=== PATIENT | female | born 1935 | race Caucasian/White ===

== ENCOUNTER 2018-11-11 16:18 | Emergency (ER) | payer MEDICARE, OTHER ==
--- NOTE | 2018-11-11 17:44 | ERPHSYRPT ---
- History of Present Illness Time Seen by Provider: 11/11/18 17:15 Source: patient, family (Friend) Exam Limitations: clinical condition (Unable to obtain personal information; confusion) Patient Subjective Stated Complaint: patient's friend states earlier today that patient had called him and seemed confused on the phone. friend is a [employer] that helps patient. states he had not seen the patient for a month prior to todays phone call. does have children out of town but unsure when they spoke with her last. patient denies pain. Triage Nursing Assessment: ambulated to room per self with steady gate. skin w/ d, color normal, resp easy. patient's speech is garbled at times and is not able to answer questions with approriate words. unable to state what day it is or where she is. unable to state date. denies any pain. Allergies/Adverse Reactions: doxycycline Allergy (Intermediate, Verified 11/16/13 20:11) Rash states lose voice Sulfa (Sulfonamide Antibiotics) [Sulfa(Sulfonamide Antibiotics)] Allergy ( Intermediate, Verified 11/16/13 20:11) Rash Home Medications: Atorvastatin Calcium 20 mg PO DAILY 11/16/13 [History] Clopidogrel Bisulfate 75 mg [PLAVIX 75 MG Tablet] 75 mg PO DAILY 11/16/13 [History] Furosemide 20 mg PO DAILY 11/16/13 [History] Glipizide [Glipizide ER] 2.5 mg PO DAILY 11/16/13 [History] Levothyroxine Sodium [Synthroid] 125 mcg PO DAILY 11/16/13 [History] Metoprolol Tartrate 100 mg PO BID 11/16/13 [History] Potassium Chloride 10 Meq Tab* [Klor Con 10 MEQ] 10 meq PO DAILY 11/16/13 [ History] Prednisolone Acetate OPHTH [Pred-Forte 1% Ophthalmic] 2 drops 11/16/13 [ History] Trandolapril 4 mg PO DAILY 11/16/13 [History] Hx Tetanus, Diphtheria Vaccination/Date Given: No Hx Influenza Vaccination/Date Given: No Hx Pneumococcal Vaccination/Date Given: Yes - Past Medical History Pertinent Past Medical History: Yes Neurological History: Stroke ENT History: Cataracts Cardiac History: Coronary Artery Disease, High Cholesterol, Hypertension Respiratory History: No Pertinent History Endocrine Medical History: Diabetes Type II, Hyperthyroidism Musculoskeletal History: Arthritis GI Medical History: Hemorrhoids History: No Pertinent History Psycho-Social History: No Pertinent History Female Reproductive Disorders: Breast Cancer Other Medical History: takes sleep med for depression/anxiety r/t spouse passed four months ago - Past Surgical History Past Surgical History: Yes Neuro Surgical History: No Pertinent History Cardiac: CABG, Valve Replacement Respiratory: No Pertinent History Gastrointestinal: Cholecystectomy Genitourinary: No Pertinent History Musculoskeletal: Orthopedic Surgery Female Surgical History: Lumpectomy Other Surgical History: r ankle fracture repair - Social History Smoking Status: Former smoker How long have you smoked: unknown Exposure to second hand smoke: Yes Drug Use: none Patient Lives Alone: Yes - Female History Hx Now: No - Nursing Vital Signs Nursing Vital Signs: Initial Vital Signs Temperature 98.1 F 11/11/18 16:40 Pulse Rate 76 11/11/18 16:40 Respiratory Rate 16 11/11/18 16:40 Blood Pressure 155/72 11/11/18 16:40 O2 Sat by Pulse Oximetry 97 11/11/18 16:40 Pain Scale Pain Intensity 0 - Physical Exam SpO2: 97 Ordered Tests: Active Orders 24 hr Category Date Time Status HEAD WITHOUT CONTRAST [CT] Stat Exams 11/11/18 17:08 Taken - Departure Departure Disposition: Transfer (Formerly [facility]) Clinical Impression: Acute embolic stroke Condition: Stable Critical Care Time: Yes Critical Care Time(excluding separately billable procedures): Critical 30-74 mins Referrals: JOHN BARILLAS [Primary Care Provider] -
[2018-11-11 17:50] VITALS: O2SAT 94
[2018-11-11 18:05] VITALS: BP 178/86; PULSE 77
--- NOTE | 2018-11-11 20:08 | XRAY ---
Indication: Speech disturbance. Change in mental status. Multiple contiguous axial images obtained through the head without contrast. Comparison: November 16, 2013. New left frontal parietal cortical and subcortical hypoattenuation favoring acute ischemia. It measures at least 5.0 x 3.2 cm in greatest AP and transverse dimension. No acute intracranial hemorrhage, abnormal extra-axial fluid collection, or mass effect. Fourth ventricle is midline without hydrocephalus. Bony calvarium intact. Visualized paranasal sinuses and mastoid air cells are clear. Impression: New left frontal parietal acute ischemia. No acute hemorrhage or mass effect. Comment: Preliminary interpretation was made by [facility]. No discrepancy. CTDI 67.00
== END 2018-11-11 18:14 | disposition short-term general hospital (02) ==
LOC: ED 16:18
DX: I63.9 Cerebral infarction, unspecified (principal)
CPT/HCPCS: 36000; 70450; 99284; 99291